=== PATIENT | male | born 1985 | race Caucasian/White ===

== ENCOUNTER 2024-07-08 09:18 | Outpatient (CLI) | payer BC, SELFPAY | END 2024-07-08 09:19 | disposition home or self-care (01) | PROVIDERS: PCP Family Medicine; Visit Provider Family Medicine | DX: R53.83 Other fatigue (principal); R63.5 Abnormal weight gain; E66.09 Other obesity due to excess calories; Z13.6 Encounter for screening for cardiovascular disorders; Z13.9 Encounter for screening, unspecified | CPT/HCPCS: 80053; 80061; 85025 ==

== ENCOUNTER 2024-07-12 08:47 | Outpatient (CLI) | payer BC, SELFPAY | END 2024-07-12 08:48 | disposition home or self-care (01) | PROVIDERS: PCP Family Medicine; Visit Provider Family Medicine | DX: R53.83 Other fatigue (principal); R63.5 Abnormal weight gain | CPT/HCPCS: 84403; 84443 ==

== ENCOUNTER 2024-07-13 07:45 | Outpatient (CLI) | payer BC, SELFPAY | END 2024-07-13 07:46 | disposition home or self-care (01) | LOC: FBOREF 07:46 | PROVIDERS: PCP Family Medicine; Visit Provider Family Medicine | DX: E66.09 Other obesity due to excess calories (principal); R53.83 Other fatigue; R63.5 Abnormal weight gain | CPT/HCPCS: 84403; 84439; 84443 ==

== ENCOUNTER 2024-07-29 12:33 | Outpatient (RCR) | payer BC, SELFPAY | END 2024-08-30 15:54 | disposition home or self-care (01) | PROVIDERS: PCP Family Medicine; Visit Provider Physician Assistant | DX: M25.561 Pain in right knee (principal); Z51.89 Encounter for other specified aftercare | CPT/HCPCS: 97112; 97161 ==